=== PATIENT | female | born 1975 | race African-American/Black ===

== ENCOUNTER 2017-01-25 13:53 | Inpatient (IN) ==
[2017-01-25] MEDS ORDERED: ONDANSETRON 4 MG/2 ML VIAL IV STA (14:13)
[2017-01-25] MEDS ORDERED: fentaNYL 100 MCG/2 ML VIAL IV STA ×2 (14:13→17:36)
--- NOTE | 2017-01-25 14:17 | Emergency Department Note ---
Florin Hayes Brooke, am scribing for, and in the presence of, Jarrett Fox MD 14:15 . Dominique Hayes James D, MD, personally performed the services described in this documentation, ascribed by Marly Catherine in my presence, and it is both accurate and complete 416 . Arrival - Arrival Chief Complaint: Abdominal / Flank Pain Stated Complaint: Chrohn's flare up ED Nursing Triage Note: c/o generalized abdominal pain onset 01/22/17. +nausea/ vomiting. Last bowel movement this am. Denies fever. States "I think my chron's is flared up". Seen here on 01/23/17 for same complaint, instructed to follow up with Dr Mast today, office told patient to come to ER. Mode of Arrival: Ambulatory Limitations: No Limitations Source: Patient, RN Notes Reviewed Time Seen by Provider: 01/25/17 14:09 - History of Present Illness HPI Narrative: Patient is a 41 year old female, with history of Crohn's Disease, who presents to the ED with c/o diffuse abdominal pain, nausea, and vomiting that started Monday night. Patient describes the pain as sharp. Patient denies having any fever but says she has had "a little" blood in her stool. Patient was in the ED , Monday, with same complaint. She says she had blood work done and was given Toradol. Patient is currently prescribed Imuran and did take it this morning. She says she was able to keep the medication down today. There are no other complaints. She still has her gallbladder but no longer has an appendix. Onset (ago): day(s) (3) Date of Last Menstrual Period: 2 weeks ago Allergies/Adverse Reactions: Allergies Allergy/AdvReac Type Severity Reaction Status Date / Time acetaminophen [From [place]] Allergy Mild ITCHING Verified 01/25/17 14:03 hydrocodone [From [place]] Allergy Mild ITCHING Verified 01/25/17 14:03 Hydromorphone [From Dilaudid] Allergy Mild ITCHING Verified 01/25/17 14:03 Home Medications: Home Medications Medication Instructions Recorded Confirmed Type azaTHIOprine [Imuran] 50 mg PO DAILY 01/25/17 01/25/17 History Review of System - Review of System 12 point system: reviewed and no additional remarkable complaints except as stated - Review of System Constitutional: Absent: fever Respiratory: Absent: respiratory distress Gastrointestinal: Present: abdominal pain, nausea, vomiting, hematochezia Skin: Absent: rash Medical,Surgical,& Family Hx - Medical History Gastrointestinal: History of: Crohn's Disease - Social History Smoking Status: Never smoker Frequency of Alcohol Use: None Type of Drug Use: None Exam Vital Signs: Vital Signs Temperature 97.2 F L 01/25/17 14:30 Pulse Rate 85 01/25/17 16:05 Respiratory Rate 17 01/25/17 16:05 Blood Pressure 126/80 01/25/17 16:05 O2 Sat by Pulse Oximetry 100 01/25/17 16:05 GENERAL: This is a well-nourished well-developed black female in no apparent distress. VITAL SIGNS: Reviewed HEENT: Head is atraumatic and normocephalic. Pupils are equal round react to light. Extraocular movements are intact. Oropharynx is benign with moist mucous membranes. NECK: Neck is soft and supple without tenderness. There are no masses. There is no lymphadenopathy. LUNGS: Lungs are clear to auscultation. Chest rises symmetrically. There is no chest wall tenderness. CV: Heart is regular rate and rhythm without murmurs rubs or gallops. ABDOMEN: Abdomen is soft, minimal epigastric tenderness. There are no abdominal abnormal masses palpated. There is no organomegaly. Bowel sounds are present and active. SKIN: Skin is warm and dry. No rash. EXTREMITIES: Patient has full range of motion without tenderness. There is no pedal edema. NEUROLOGIC: Awake alert and oriented 4. Cranial nerves II through XII are grossly intact. Motor is 5 over 5 in all extremities bilaterally. Course - Consultations Consultation #1: Discussed with Dr. Mast. Patient admitted to his service. Initial orders written for him. He will assume care upon patient's arrival to the [facility]. Time: 16:57 Results - Labs CBC & BMP: 01/25/17 14:22 01/25/17 14:22 Lab Results: I have reviewed the patients labs - Diagnostic Findings Procedure: CT Abdomen and Pelvis: image reviewed by me, report reviewed by me ( Distended ileum with surrounding stranding consistent with inflammation related to Crohn's.) Disposition Clinical Impression: Crohns disease, Epigastric pain Case discussed with: patient Disposition: Still a Patient Condition: Stable
[2017-01-25] MEDS ORDERED: ONDANSETRON 4 MG/2 ML VIAL ONE (14:37)
[2017-01-25] MEDS ORDERED: fentaNYL 100 MCG/2 ML VIAL ONE ×2 (14:37→17:38)
[2017-01-25 14:59] LABS: Basophils % 0.2 % (0.0-0.8); Eosinophils % 0.6 % (0.00-10.9); Hematocrit 30.3 VOL% (35.7-47.0); Hemoglobin 8.5 GM/DL (12.0-16.0); Immature Granulocytes % 0.3 %; Immature Granulocytes Absolute 0.02 #; Lymphocytes # 1.5 10*3/uL (1.4-4.0); Lymphocytes % 24.8 % (21.3-54.2); Mean Corpuscular HGB Conc 28.1 GM/DL (32-36); Mean Corpuscular Hemoglobin 20 PG (27-34); Mean Corpuscular Volume 69.3 FL (87-102); Mean Platelet Volume 10.3 FL (9.6-12.0); Monocytes # 0.6 10*3/uL (0.11-0.8); Monocytes % 9.6 % (1.7-12.7); Neutrophils % 64.5 % (38.7-73.9); Platelet Count 424 T/CUMM (130-400); Red Blood Count 4.37 MC/CUMM (3.8-5.5); Red Cell Distribution Width 17.4 % (9.3-17.3); White Blood Count 6.2 T/CUMM (4-12)
[2017-01-25 15:10] LABS: Alanine Aminotransferase 18 U/L (13-56); Albumin 3.2 G/DL (3.4-5.0); Alkaline Phosphatase 83 U/L (45-117); Apearance,Urine CLEAR (Clear); Aspartate Amino Transferase 18 U/L (0-37); Bilirubin,Total < 0.39 MG/DL (0.2-1.0); Bilirubin,Urine Negative (Negative); Blood Urea Nitrogen 9 MG/DL (7-18); Blood, Urine Negative (Negative); Calcium 9.1 MG/DL (8.5-10.1); Glucose 78 MG/DL (74-106); Glucose,Urine (UA) Negative (Negative); Ketones,Urine Negative (Negative); Mucus,Urine Occasional /LPF (Occasional); Nitrite,Urine Negative (Negative); Osmolality,Calculated 274.5 MOS/KG (273-304); Potassium 4.3 MMOL/L (3.5-5.1); Protein,Urine Negative; RBC,Urine 1 /HPF (0-4); Sodium 139 MMOL/L (136-145); Squamous Epithelial Cell,Urine Occasional /HPF (0-10); Total Protein 7.9 G/DL (6.4-8.3); Troponin I Only < 0.015 NG/ML (0.00-0.045); Urine Color Yellow (Yellow); Urine Specific Gravity 1.017 (1.001-1.035); Urine Urobilinogen < 2.0 EU/DL (0.2-1.0); WBC,Urine 1 /HPF (0-6)
[2017-01-25 15:35] LABS: Anisocytosis Slight; Hypochromasia 1+
[2017-01-25 15:36] LABS: Elliptocytes Few; Microcytosis 1+; Platelet Estimate Adequate
--- NOTE | 2017-01-25 16:12 | CT Report ---
CT abdomen pelvis Indication: Abdominal pain, Crohn's disease Comparison: 19 March 2016 Technique: Axial CT imaging of the abdomen and pelvis is performed with intravenous and oral contrast. Contrast dose is 100 cc of Omnipaque 350. Findings: Cardiac and lung bases are within normal limits CT abdomen: Simple appearing hepatic cyst is present. Otherwise the liver spleen pancreas and adrenal glands are normal in size and enhancement. No evidence of focal lesion is demonstrated in these solid organs. Kidneys are stable in size and enhancement with atrophy of the right kidney and hypertrophy of the left kidney. Left renal cyst is unchanged in appearance No evidence of hydronephrosis or nephrolithiasis is seen. There is anastomosis of small bowel to the cecum in the right lower quadrant area. There is distention of the distal ileum and adjacent stranding increased from previous exam. A few subcentimeter lymph nodes are present in the right lower quadrant mesentery. Remaining bowel caliber is normal and no wall thickening or adjacent inflammatory change is seen. No evidence of free fluid or free air is present. CT pelvis: The pelvic bowel appears within normal limits. Bladder shows no evidence of abnormality. The pelvic organs show no evidence of abnormality Impression: Distended distal ileum with adjacent stranding extending to the anastomosis site could indicate partial obstruction and/or Crohn's disease. This CT exam was performed using one or more the following dose reduction techniques: Automated exposure control, adjustment of the MA and/or KV according to patient size, or use of iterative reconstruction technique. PROCEDURE INTERPRETED AT [facility] DEPARTMENT OF RADIOLOGY Final Report Signed by: Dr. Richardson Wise
--- NOTE | 2017-01-25 16:13 | XRay Report ---
XR chest 1V portable Indication: Abdominal pain Comparison: None available Findings: The heart and mediastinum are normal in size and configuration. The pulmonary vascularity is normal in caliber. No lung infiltrates, effusions, pneumothorax or other abnormality is demonstrated. Impression: Normal chest x-ray PROCEDURE INTERPRETED AT [facility] DEPARTMENT OF RADIOLOGY Final Report Signed by: Dr. Richardson Wise
--- NOTE | 2017-01-25 16:14 | XRay Report ---
XR abdomen 2V Indication: Abdominal pain Comparison: 20 March 2016 Findings: No free fluid or free air seen. The bowel loops are present in the right lower quadrant with air-fluid levels. Clips are present in the area from previous surgery. Remaining bowel gas pattern appears within normal limits. No abnormal calcifications are present. No other abnormality is identified. Impression: Few prominent small bowel loops in the right lower quadrant with air-fluid levels, could indicate partial obstruction and/or ileus PROCEDURE INTERPRETED AT [facility] DEPARTMENT OF RADIOLOGY Final Report Signed by: Dr. Richardson Wise
[2017-01-25] MEDS ORDERED: methylPREDNISolone SOD SUC 125 MG/2 ML VIAL IV STA (16:50)
[2017-01-25] MEDS ORDERED: metroNIDAZOLE INJ 500 MG in PREMIX 1 EACH IV STA (16:50)
[2017-01-25] MEDS ORDERED: metroNIDAZOLE 500 MG/100 ML PREMIX IV ONE (17:03)
[2017-01-25] MEDS ORDERED: methylPREDNISolone SOD SUC 125 MG/2 ML VIAL ONE (17:06)
[2017-01-25] MEDS ORDERED: ONDANSETRON 4 MG/2 ML VIAL IV PRN (18:33)
[2017-01-25] MEDS ORDERED: fentaNYL 100 MCG/2 ML VIAL IV PRN (18:33)
[2017-01-25] MEDS ORDERED: MAGNESIUM HYDROXIDE SUSP 30 ML UDCUP PO PRN (18:33)
--- NOTE | 2017-01-25 18:52 | Gastrointestinal H&P ---
Assessment and Plan - Time spent with patient Time spent with patient: Greater than 30 minutes (1) Crohns disease Status: Acute Assessment and plan: With clinical flare activity related to medical noncompliance stopping Imuran recently. CT is reviewed with inflammatory changes in the right lower quadrant with no abscess noted. She has no leukocytosis or fever at presentation. She may have partial small bowel obstruction with her vomiting in CT appearance. I am going to start her on IV Cipro/Flagyl and also IV steroids for now. Patient had restarted her Imuran 3 weeks ago when symptoms returned but would not expect full therapeutic effect for another month or 2. Trying another biologic agent such as Cimzia would be consideration but very well could have same side effects she had with Humira. Current Visit: No History of Present Illness Chief complaint: Abdominal pain, nausea and vomiting History of present illness: Ms. Santiago is a 41 year old female with Crohn's disease is admitted with 3 week complaint of off and on lower abdominal pain and nausea with vomiting. Her energy level has been markedly decreased as well. She has noted diarrhea with no bleeding other than a small amount of bright red blood noted mostly on toilet paper a few days ago. She had increased vomiting around noon today and presented to the emergency room. Patient was diagnosed with Crohn's in 1996. She presented with obstructive symptoms and apparently had ileocecectomy. She did well for around 10 years but really flared and was seen by Dr. Strong. He recommended Remicade but she had no insurance coverage for this. She was treated with steroids then and then re-flared again in 2012 with Humira started but she could not tolerate that due to chest discomfort and palpitations after every dose. She was treated with steroids and 5-ASA medications also known up until last year when she was admitted to de with a flare. She was again treated with steroids initially and transitioned to Imuran. Patient has basically been in remission since but decided 2 months ago to stop taking the Imuran for unclear reasons. She had colonoscopy at the endoscopic center I think around 4 months ago with no endoscopic flare activity noted. Home Medications Medication Instructions Recorded Confirmed Type azaTHIOprine [Imuran] 50 mg PO DAILY 01/25/17 01/25/17 History Allergies Allergy/AdvReac Type Severity Reaction Status Date / Time acetaminophen [From [place]] Allergy Mild ITCHING Verified 01/25/17 14:03 hydrocodone [From [place]] Allergy Mild ITCHING Verified 01/25/17 14:03 Hydromorphone [From Dilaudid] Allergy Mild ITCHING Verified 01/25/17 14:03 Medical,Surgical,& Family Hx - Medical History Gastrointestinal: History of: Crohn's Disease - Surgical History Abdominal Surgeries: Surgical HX of: Abdominal Surgery (Ileocecectomy in 1996), Appendectomy - Social History Smoking Status: Never smoker Frequency of Alcohol Use: None Type of Drug Use: None - Constitutional Constitutional: Present: malaise. Absent: chills, fever(s) - EENT Nose, mouth and throat: Absent: dysphagia, epistaxis - Cardiovascular Cardiovascular: Absent: chest pain with activity, orthopnea, PND - Respiratory Respiratory: Absent: cough, wheezing - Gastrointestinal Gastrointestinal: Present: as per HPI - Genitourinary Genitourinary: Absent: difficulty urinating, dysuria, flank pain, hematuria - Musculoskeletal Musculoskeletal: Absent: arthralgias - Neurological Neurological: Absent: abnormal gait, abnormal speech, focal weakness - Endocrine Endocrine: Present: fatigue. Absent: polydipsia, polyphagia - Hematologic/Lymphatic Hematologic/Lymphatic: Absent: easy bleeding, easy bruising Exam - Constitutional Vitals: Period Temp Pulse Resp BP Sys/Way Pulse Ox Last 24 Hr 97.2 F-97.2 F 68-93 16-20 112-136/61-99 97-100 General appearance: no acute distress, over weight - Head Head exam: Present: normocephalic, atraumatic - Eye Eye exam: Present: EOMI. Absent: conjunctival injection, scleral icterus Pupils: Present: normal accommodation - Respiratory Respiratory exam: Present: clear to auscultation bilaterally. Absent: wheezes - Cardiovascular Cardiovascular exam: Present: regular rate and rhythm. Absent: gallop, rubs - GI/Abdominal GI/Abdominal exam: Present: tenderness (Right lower quadrant), soft. Absent: distended (Obese), organomegaly - Extremities Exam Extremities exam: Absent: calf tenderness, edema - Neurological Exam Neurological exam: Present: alert, oriented X3, CN II-XII intact. Absent: motor sensory deficit - Psychiatric Psychiatric exam: Present: normal affect, normal mood - Skin Skin exam: Present: warm, dry Results - Labs CBC & BMP: 01/25/17 14:22 01/25/17 14:22
[2017-01-25] MEDS: CIPROFLOXACIN INJ 400 MG in PREMIX 1 EACH IV SCH (18:53)
[2017-01-25] MEDS: SODIUM CHLORIDE 0.9% 1,000 ML IV SCH (18:53)
[2017-01-26] MEDS: methylPREDNISolone SOD SUC 40 MG/1 ML VIAL IV SCH ×3 (00:50→16:02)
[2017-01-26] MEDS: metroNIDAZOLE INJ 500 MG in PREMIX 1 EACH IV SCH ×4 (00:51→23:00)
[2017-01-26] MEDS: SODIUM CHLORIDE 0.9% 1,000 ML IV SCH ×3 (05:59→17:32)
[2017-01-26] MEDS: CIPROFLOXACIN INJ 400 MG in PREMIX 1 EACH IV SCH ×2 (06:03→17:59)
[2017-01-26 06:44] LABS: Hematocrit 27.9 VOL% (35.7-47.0); Hemoglobin 7.8 GM/DL (12.0-16.0); Immature Granulocytes % 0.5 %; Immature Granulocytes Absolute 0.02 #; Lymphocytes # 0.6 10*3/uL (1.4-4.0); Mean Corpuscular Hemoglobin 19 PG (27-34); Mean Corpuscular Volume 69.1 FL (87-102); Mean Platelet Volume 11.5 FL (9.6-12.0); Monocytes % 0.8 % (1.7-12.7); Neutrophils # 3.1 10*3/uL (1.4-7.4); Neutrophils % 83.7 % (38.7-73.9); Platelet Count 290 T/CUMM (130-400); Red Blood Count 4.04 MC/CUMM (3.8-5.5); Red Cell Distribution Width 17.3 % (9.3-17.3); White Blood Count 3.7 T/CUMM (4-12)
[2017-01-26 07:01] LABS: Osmolality,Calculated 273.7 MOS/KG (273-304); Potassium 4.4 MMOL/L (3.5-5.1)
[2017-01-26 07:07] LABS: Giant Platelets Few; Hypochromasia 1+; Microcytosis 1+; Ovalocytes Slight; Platelet Estimate Adequate
--- NOTE | 2017-01-26 09:02 | Gastrointestinal Progress Note ---
Assessment and Plan (1) Crohns disease Status: Acute Assessment and plan: 01/26-history of Crohn's disease with exacerbation, now with improved abdominal pain and no nausea or vomiting overnight. No diarrhea stools since yesterday. No overt bleeding. H&H is noted to be down slightly. Recheck H&H. Start clear liquid diet. Continue to monitor at this time. Plan an addendum to followed by Dr. Mast. Current Visit: No Gastroenterology - PN: Subj Interval history: CC: Abdominal pain Patient is seen, awake and alert lying in bed. Spouse is at bedside. She states that she did rest fairly well last night. She states her abdominal pain is improved today and denies any nausea or vomiting. She has not had any bowel movement since admission on yesterday. No reports of overt bleeding. She is afebrile. States that she is hungry and would like to try clear liquids today. No leukocytosis noted. Patient's H&H is noted to be 7.8/27.9. Down slightly from admission. She does have a long-term history of anemia however is never required a blood transfusion in the past. Abdomen is soft, nontender. ROS: Denies shortness of breath or chest pain Exam (Progress Note) - Constitutional Vitals: Period Temp Pulse Resp BP Sys/Way Pulse Ox Last 24 Hr 96.2 F-98.5 F 55-97 16-20 85-136/55-99 95-100 General appearance: normal weight, no acute distress - Head Head exam: Present: normal inspection, normocephalic - Eye Eye exam: Present: other (Lids and conjunctive are unremarkable). Absent: scleral icterus - ENT ENT exam: Present: normal exam, normal oropharynx - Neck Neck exam: Present: normal inspection - Respiratory Respiratory exam: Present: clear to auscultation bilaterally. Absent: rales, rhonchi, wheezes - Cardiovascular Cardiovascular exam: Present: regular rate and rhythm. Absent: diastolic murmur , JVD, systolic murmur - GI/Abdominal GI/Abdominal exam: Present: normal bowel sounds, soft. Absent: ascites, distended, mass, organomegaly, tenderness - Extremities Exam Extremities exam: Present: normal inspection, full ROM - Back Exam Back exam: Present: normal inspection - Neurological Exam Neurological exam: Present: alert, oriented X3 - Psychiatric Psychiatric exam: Present: normal affect, normal mood - Skin Skin exam: Present: normal color, warm, dry Results - Labs CBC & BMP: 01/26/17 05:55 01/26/17 05:55 Lab Results: I have reviewed the past 24 hour labs
[2017-01-26 12:39] LABS: Hematocrit 29.1 VOL% (35.7-47.0)
[2017-01-26 12:40] LABS: Hemoglobin 8.2 GM/DL (12.0-16.0)
[2017-01-27] MEDS: methylPREDNISolone SOD SUC 40 MG/1 ML VIAL IV SCH ×2 (00:25→09:54)
[2017-01-27] MEDS: SODIUM CHLORIDE 0.9% 1,000 ML IV SCH ×2 (03:49→09:54)
[2017-01-27] MEDS: metroNIDAZOLE INJ 500 MG in PREMIX 1 EACH IV SCH ×2 (05:35→13:42)
[2017-01-27] MEDS: CIPROFLOXACIN INJ 400 MG in PREMIX 1 EACH IV SCH (06:43)
--- NOTE | 2017-01-27 08:44 | Discharge Summary ---
<KendalldukeMonica Oriana - Last Filed: 01/27/17 08:41> Hospital Course - Hospital Course Hospital Course: Patient was admitted on 01/25 with onset abdominal pain, nausea and vomiting 3 weeks. She has a prior history of Crohn's disease in the past in which she was diagnosed in 1996 and has a history of ileocecectomy. She has been treated in the past with steroids and 5-ASA meds until her last flare approximately a year ago. At that time she was transitioned to Imuran and had been in remission however 2 months ago she stopped taking her Imuran for unknown reasons. Her last colonoscopy was 4 months ago with no endoscopic evidence of flare. She then presented to the emergency room 2 days ago with 3 week history of complaints of abdominal pain with some nausea and vomiting. CT findings showed possible partial small bowel obstruction with inflammatory changes in the right lower quadrant without abscess. She was initiated on IV Cipro and Flagyl as well as IV steroids and has been without leukocytosis or fever. Since admission , patient has continued to improve with decreased abdominal pain and no further nausea vomiting. She has had a normal bowel movement. Her appetite is returning she is tolerating regular diet at this time. She is able to hydrate herself as well. She will be discharged home today. Diagnosis - Discharge Diagnosis (1) Crohns disease Status: Acute Discharge Plan - Discharge Data Disposition: Disch To Home/Self Care Condition at Discharge: Stable Discharge Diet: advance to your usual diet Activity: resume usual activities as tolerated Hygiene: no restrictions Weight Bearing at Discharge: full weight bearing Driving: no restrictions Contact your physician if you experience:: fever over 101, Nausea/Vomiting, pain uncontrolled by pain medications - Discharge Medications No Action azaTHIOprine [Imuran] 50 mg PO DAILY - Follow Up or Referral - Forms/Instructions Instructions: Crohn Disease (DC), Epigastric Pain (GEN) Exam - Constitutional Vitals: Period Temp Pulse Resp BP Sys/Way Pulse Ox Last 24 Hr 96.8 F-97.5 F 71-99 18-20 95-100/42-60 94-97 General appearance: normal weight, no acute distress - Head Head exam: Present: normal inspection, normocephalic - Eye Eye exam: Present: other (Lids and identified unremarkable). Absent: scleral icterus - ENT ENT exam: Present: normal exam, normal oropharynx - Neck Neck exam: Present: normal inspection - Respiratory Respiratory exam: Present: clear to auscultation bilaterally. Absent: rales, rhonchi, wheezes - Cardiovascular Cardiovascular exam: Present: regular rate and rhythm. Absent: diastolic murmur , JVD, systolic murmur - GI/Abdominal GI/Abdominal exam: Present: normal bowel sounds, soft. Absent: ascites, distended, mass, organomegaly, tenderness - Extremities Exam Extremities exam: Present: normal inspection, full ROM - Back Exam Back exam: Present: normal inspection - Neurological Exam Neurological exam: Present: alert, oriented X3 - Psychiatric Psychiatric exam: Present: normal affect, normal mood - Skin Skin exam: Present: normal color, warm, dry Discharge Results Procedures and tests throughout hospitalization: Pending Orders 01/28/17 04:00 Comp Blood Count Auto Diff IN AM Labs on day of discharge: Labs from last 24 hours 01/27/17 07:52 WBC 6.2 D RBC 4.02 Hgb 7.8 L Hct 27.9 L MCV 69.4 L MCH 19 L MCHC 28.0 L RDW 17.3 Plt Count 280 MPV 10.5 Neut % (Auto) 81.4 H Lymph % (Auto) 13.6 L [place] % (Auto) 4.3 Eos % (Auto) 0.0 Baso % (Auto) 0.2 Neut # (Auto) 5.1 Lymph # (Auto) 0.9 L [place] # (Auto) 0.3 Eos # (Auto) 0.0 Baso # (Auto) 0.0 Immature Gran % 0.5 Nucleated RBC % 0.0 Immature Gran # 0.03 Nucleated RBCs # 0.00 Platelet Estimate Adequate Giant Platelets Few Immature Plt Fraction 0.0 Hypochromasia 1+ Microcytosis 1+ - Imaging and Cardiology Procedure: CT Abdomen and Pelvis: report reviewed by al DS: Provider Date of admission: 01/25/17 16:54 Primary care physician: . No PCP Attending physician on admission: Flavio Mcdonald Discharging clinician: Dioni Lindsay Expected date of discharge: 01/27/17 <Flavio Mast - Last Filed: 01/27/17 13:04> Diagnosis - Discharge Diagnosis (1) Crohns disease Status: Acute
[2017-01-27 08:50] LABS: Basophils % 0.2 % (0.0-0.8); Hematocrit 27.9 VOL% (35.7-47.0); Immature Granulocytes % 0.5 %; Immature Granulocytes Absolute 0.03 #; Lymphocytes # 0.9 10*3/uL (1.4-4.0); Lymphocytes % 13.6 % (21.3-54.2); Mean Corpuscular Hemoglobin 19 PG (27-34); Mean Corpuscular Volume 69.4 FL (87-102); Mean Platelet Volume 10.5 FL (9.6-12.0); Monocytes # 0.3 10*3/uL (0.11-0.8); Monocytes % 4.3 % (1.7-12.7); Neutrophils # 5.1 10*3/uL (1.4-7.4); Neutrophils % 81.4 % (38.7-73.9); Platelet Count 280 T/CUMM (130-400); Red Blood Count 4.02 MC/CUMM (3.8-5.5); Red Cell Distribution Width 17.3 % (9.3-17.3); White Blood Count 6.2 T/CUMM (4-12)
[2017-01-27 08:56] LABS: Hemoglobin 7.8 GM/DL (12.0-16.0)
[2017-01-27 08:59] LABS: Giant Platelets Few; Hypochromasia 1+; Microcytosis 1+; Platelet Estimate Adequate
[2017-01-27 14:07] VITALS: BP 113/63
== END 2017-01-27 14:30 | disposition home or self-care (01) | DRG 387 ==
LOC: N.ED 13:53 → N.5E 16:17 → N.EDINP 16:54 → N.5E 18:31
PROVIDERS: ADMIT Internal Medicine Gastroenterology; ATTEND Internal Medicine Gastroenterology

== ENCOUNTER 2017-03-18 15:08 | Inpatient (IN) ==
[2017-03-18] MEDS ORDERED: ONDANSETRON 4 MG/2 ML VIAL IV STA (16:43)
[2017-03-18] MEDS ORDERED: SODIUM CHLORIDE 0.9% 1,000 ML IV STA (16:43)
[2017-03-18 16:46] LABS: Apearance,Urine CLOUDY (Clear); Bilirubin,Urine Negative (Negative); Blood, Urine Negative (Negative); Glucose,Urine (UA) Negative (Negative); Ketones,Urine Negative (Negative); Mucus,Urine Many /LPF (Occasional); Nitrite,Urine Negative (Negative); Protein,Urine Negative; RBC,Urine 3 /HPF (0-4); Squamous Epithelial Cell,Urine Moderate /HPF (0-10); Urine Color Yellow (Yellow); Urine Specific Gravity 1.025 (1.001-1.035); Urine Urobilinogen < 2.0 EU/DL (0.2-1.0); WBC,Urine 1 /HPF (0-6)
[2017-03-18] MEDS ORDERED: ONDANSETRON 4 MG/2 ML VIAL ONE (16:46)
[2017-03-18 16:52] LABS: Eosinophils % 0.1 % (0.00-10.9); Hematocrit 32.8 VOL% (35.7-47.0); Hemoglobin 9.3 GM/DL (12.0-16.0); Immature Granulocytes % 0.4 %; Immature Granulocytes Absolute 0.03 #; Lymphocytes # 1.1 10*3/uL (1.4-4.0); Mean Corpuscular HGB Conc 28.4 GM/DL (32-36); Mean Corpuscular Hemoglobin 20 PG (27-34); Mean Corpuscular Volume 70.2 FL (87-102); Mean Platelet Volume 9.7 FL (9.6-12.0); Monocytes # 0.7 10*3/uL (0.11-0.8); Monocytes % 8.1 % (1.7-12.7); Neutrophils # 6.2 10*3/uL (1.4-7.4); Neutrophils % 77.4 % (38.7-73.9); Platelet Count 352 T/CUMM (130-400); Red Blood Count 4.67 MC/CUMM (3.8-5.5); Red Cell Distribution Width 18.3 % (9.3-17.3)
[2017-03-18 17:08] LABS: Alanine Aminotransferase 18 U/L (13-56); Albumin 3.1 G/DL (3.4-5.0); Alkaline Phosphatase 86 U/L (45-117); Aspartate Amino Transferase 17 U/L (0-37); Bilirubin,Total < 0.39 MG/DL (0.2-1.0); Blood Urea Nitrogen 7 MG/DL (7-18); Calcium 9.1 MG/DL (8.5-10.1); Glucose 89 MG/DL (74-106); Osmolality,Calculated 269.8 MOS/KG (273-304); Potassium 3.8 MMOL/L (3.5-5.1); Sodium 137 MMOL/L (136-145); Total Protein 7.9 G/DL (6.4-8.3)
[2017-03-18] MEDS ORDERED: fentaNYL 100 MCG/2 ML VIAL IV STA ×2 (17:57→18:39)
[2017-03-18] MEDS ORDERED: fentaNYL 100 MCG/2 ML VIAL ONE (17:58)
[2017-03-18] MEDS ORDERED: ONDANSETRON 4 MG/2 ML VIAL IV PRN (19:46)
[2017-03-18] MEDS ORDERED: MAGNESIUM HYDROXIDE SUSP 30 ML UDCUP PO PRN (19:46)
[2017-03-18] MEDS ORDERED: methylPREDNISolone SOD SUC 40 MG/1 ML VIAL IV SCH (21:00)
[2017-03-18] MEDS ORDERED: MORPHINE 2 MG/1 ML SYRINGE IV PRN (21:30)
[2017-03-18] MEDS: SODIUM CHLORIDE 0.9% 1,000 ML IV SCH (21:47)
[2017-03-19] MEDS: SODIUM CHLORIDE 0.9% 1,000 ML IV SCH ×3 (06:08→22:27)
[2017-03-19 06:29] LABS: Eosinophils % 0.3 % (0.00-10.9); Hematocrit 29.2 VOL% (35.7-47.0); Hemoglobin 8.1 GM/DL (12.0-16.0); Immature Granulocytes % 0.6 %; Immature Granulocytes Absolute 0.02 #; Lymphocytes # 0.6 10*3/uL (1.4-4.0); Lymphocytes % 16.9 % (21.3-54.2); Mean Corpuscular HGB Conc 27.7 GM/DL (32-36); Mean Corpuscular Hemoglobin 20 PG (27-34); Mean Corpuscular Volume 70.9 FL (87-102); Monocytes # 0.1 10*3/uL (0.11-0.8); Neutrophils # 2.8 10*3/uL (1.4-7.4); Neutrophils % 80.2 % (38.7-73.9); Platelet Count 112 T/CUMM (130-400); Red Blood Count 4.12 MC/CUMM (3.8-5.5); Red Cell Distribution Width 18.6 % (9.3-17.3); White Blood Count 3.5 T/CUMM (4-12)
[2017-03-19 06:40] LABS: Albumin 2.7 G/DL (3.4-5.0); Bilirubin,Total 0.6 MG/DL (0.2-1.0); Calcium 8.3 MG/DL (8.5-10.1); Osmolality,Calculated 274.5 MOS/KG (273-304); Potassium 4.1 MMOL/L (3.5-5.1); Total Protein 6.4 G/DL (6.4-8.3)
[2017-03-19 07:23] LABS: Hypochromasia 1+; Microcytosis 1+; Ovalocytes Slight
[2017-03-19] MEDS ORDERED: IRON DEXTRAN 25 MG in SYRINGE 1 EACH IV ONE (08:22)
[2017-03-19] MEDS ORDERED: IRON DEXTRAN IV ONE (09:00)
[2017-03-19] MEDS ORDERED: SODIUM CHLORIDE 0.9% IV ONE (09:00)
[2017-03-19] MEDS: predniSONE 10 MG TABLET PO SCH (09:28)
[2017-03-19] MEDS: AMPICILLIN/SULBACTAM 1,500 MG in SODIUM CHLORIDE 0.9% 50 ML IV SCH ×3 (09:57→23:32)
[2017-03-20 05:48] LABS: Basophils % 0.4 % (0.0-0.8); Eosinophils % 0.2 % (0.00-10.9); Hematocrit 25.8 VOL% (35.7-47.0); Hemoglobin 7.3 GM/DL (12.0-16.0); Immature Granulocytes % 0.6 %; Immature Granulocytes Absolute 0.03 #; Lymphocytes # 1.6 10*3/uL (1.4-4.0); Lymphocytes % 31.6 % (21.3-54.2); Mean Corpuscular HGB Conc 28.3 GM/DL (32-36); Mean Corpuscular Hemoglobin 20 PG (27-34); Mean Corpuscular Volume 69.9 FL (87-102); Mean Platelet Volume 10.1 FL (9.6-12.0); Monocytes # 0.6 10*3/uL (0.11-0.8); Monocytes % 11.6 % (1.7-12.7); Neutrophils # 2.9 10*3/uL (1.4-7.4); Neutrophils % 55.6 % (38.7-73.9); Platelet Count 295 T/CUMM (130-400); Red Blood Count 3.69 MC/CUMM (3.8-5.5); Red Cell Distribution Width 18.1 % (9.3-17.3); White Blood Count 5.2 T/CUMM (4-12)
[2017-03-20 06:49] LABS: Macrocytosis 1+; Polychromasia Slight; Target Cells Slight
[2017-03-20] MEDS: SODIUM CHLORIDE 0.9% 1,000 ML IV SCH ×3 (07:06→15:51)
[2017-03-20] MEDS: predniSONE 10 MG TABLET PO SCH (10:55)
[2017-03-20] MEDS: AMPICILLIN/SULBACTAM 1,500 MG in SODIUM CHLORIDE 0.9% 50 ML IV SCH (10:57)
[2017-03-20 11:39] VITALS: BP 118/71
[2017-03-20] MEDS ORDERED: azaTHIOprine 50 MG TABLET PO SCH (15:30)
== END 2017-03-20 16:20 | disposition home or self-care (01) | DRG 387 ==
LOC: N.ED 15:08 → N.EDINP 17:55 → N.2E 19:01
PROVIDERS: ADMIT Internal Medicine Gastroenterology; ATTEND Internal Medicine Gastroenterology